=== PATIENT | female | born 1990 | race Caucasian/White ===

== ENCOUNTER 2024-02-17 09:56 | Outpatient (AMB) | payer BC, SELFPAY ==
--- NOTE | 2024-02-17 10:01 | MHC.PC.OV ---
Vital Signs 02/17/24 10:06 02/17/24 10:24 Height 4 ft 11.45 in Weight 159 lb 4 oz BMI 31.7 BP 182/118 H 169/91 H Blood Pressure Location Rt brachial Rt brachial Position Sitting Sitting Pulse 99 Pulse Source Pulse Oximeter Temp 97.3 F Temp Source Temporal Artery Scan Pulse Oximetry (%) 100 Oxygen Delivery Method Room Air Intake Visit Reasons: est care/ bp issue Intake Note: New patient visit. Elevated blood pressure Heel Former Required: No Allergies No Known Allergies Allergy (Verified 02/17/24 10:24) Medication List - Last Reconciled 02/17/24 by ROBBIN Jimenez No Known Home Meds Tobacco use date assessed: 02/17/24 Dental Screening Dental Screen Date: 02/17/24 Did you have a dental visit in the last 12 months?: Yes Did you have a dental problem in the last 6 months where you did not have access to dental care?: No Was dental information given to patient?: Patient has dentist HPI HPI Comments History of Present Illness Details 34-year-old female HTN, currently about 8 weeks. Health maintenance: Specialists: Balloon [facility] - [facility] Here today to establish care. Reports a longstanding history of hypertension. She was 1st treated with medications during her last which was 1 year ago. Reports she was treated with nifedipine and labetalol. She did not have a primary care provider so was unable to continue these medications in the period. She has been off of them for at least 9 months. Since this time she has been monitoring her blood pressure at home. She is complaining of daily headaches. Blurred vision bilat. Taking Tylenol to help with the headache. She is currently 8 weeks . Has not had recent labs drawn. In addition to the hypertension she admits severe anxiety. She has been on a p.r.n. medication in the past. Does not remember what it was called. Admits as use need to take it every day to help control her symptoms. She knows that her anxiety contributes to the hypertension. She is interested in medications. Not interested in counseling. In addition she reports the drooping of her left eyelid. Reports this has been ongoing for about 5 years. Reports that the drooping of the eyelid is worse when she is tired, as the end of the day, when she is stressed, or when she is sick. She has never had evaluation and treatment of this. She reports she had her last eye exam a few years ago when she underwent the LASIK surgery. [facility] Social History (Updated 02/17/24 @ 13:16 by Danitza Childress CMA) Household Members: Significant Other and Children Housing: House Alcohol intake: former Patient Tobacco Use Status: Never used Tobacco e-Cigarette/Vaping Use: Never Used Use of substances other than those prescribed or required for medical reasons: No Have you been hit, kicked, punched, or otherwise hurt by someone within the past year? 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 1. Little interest or pleasure in doing things: not at all 2. Feeling down, depressed, or hopeless: not at all 3. Trouble falling or staying asleep, or sleeping too much: not at all 4. Feeling tired or having little energy: not at all 5. Poor appetite or overeating: not at all 6. Feeling bad about yourself - or that you are a failure or have let yourself or your family down: not at all 7. Trouble concentrating on things, such as reading the newspaper or watching television: not at all 8. Moving or speaking so slowly that other people could have noticed. Or the opposite - being so fidgety or restless that you have been moving around a lot more than usual: not at all 9. Thoughts that you would be better off or of hurting yourself in some way: not at all Total score: 0 Depression Screening Interpretation: Negative Depression Screening Done: Yes 87391 - PHQ-9 Billing: Yes Source: Developed by Drs. Curt Anand, Lacie Mondragon, Devin Quintero and colleagues, with an educational john from [employer]. Thrive Questionnaire Date Thrive assessed: 02/17/24 I am a: Patient What is your living situation today?: I have a steady place to live Within the past 12 months, did the food you bought not last and you didn't have the money to get more?: Never true Within the past 12 months, did you worry whether your food would run out before you got money to buy more?: Never true Do you have trouble paying for medicines?: No Do you have trouble getting transportation to medical appointments?: No Do you have trouble paying your heating and electricity bill?: No Do you have trouble taking care of your child, family member or friend?: No Do you have trouble with day-to-day activities such as bathing, preparing meals, shopping, managing finances, etc.?: No Are you currently unemployed and looking for a job?: No Are you interested in more education?: No Please select the resources that you would like help with: None Currently or been in a relationship where the following occur: no concerns reported THRIVE Score: 0 AUDIT C Alcohol Use Questionnaire (AUDIT-C) 1. How often do you have a drink containing alcohol?: Monthly or less 2. How many drinks containing alcohol do you have on a typical day when you are drinking?: 1 or 2 3. How often do you have six or more drinks on one occasion?: Never Total Score: 1 Score Reviewed/Action Taken: Yes ANDREIA-7 AMB Questionnaire ANDREIA-7 Date ANDREIA - 7 assessed: 02/17/24 Feeling nervous, anxious, or on edge: 2 = More than half the days Not being able to stop or control worryin = More than half the days Worrying too much about different things: 2 = More than half the days Trouble relaxin = More than half the days Being so restless that it is hard to sit still: 1 = Several days Becoming easily annoyed or irritable: 1 = Several days Feeling afraid as if something awful might happen: 1 = Several days Total ANDREIA-7 score (0-4 normal; 5-9 mild; 10-14 moderate; 15-21 severe): 11 Source: Developed by Drs. Curt Anand, Lacie Mondragon, Devin Quintero and colleagues, with an educational john from [employer] ANDREIA-7 Assessment Billing ANDREIA-7 Assessment Tool: ANDREIA-7 Assessment 17043 Review of Systems Const All systems reviewed & are unremarkable except as noted in HPI and below Physical exam (Primary Care) Vital Signs: Last Vital Signs Temp 97.3 F 02/17/24 10:06 Pulse 99 02/17/24 10:06 BP 169/91 H 02/17/24 10:24 Pulse Ox 100 02/17/24 10:06 Oxygen Delivery Method Room Air 02/17/24 10:06 BMI result Body Mass Index 31.7 Tobacco/Smoking Status: Tobacco use Status Tobacco use date assessed 02/17/24 02/17/24 13:19 Patient Tobacco Use Status Never used Tobacco 02/17/24 10:13 e-Cigarette/Vaping Use Never Used 02/17/24 10:13 PHQ-9: PHQ-9 Score PHQ-9: Total score 0 02/17/24 13:19 Depression Screening Interpretation: Negative Thrive Assessment: Date of Thrive Assessment Date Thrive assessed 02/17/24 02/17/24 10:17 Currently or been in a relationship where the following occur: no concerns reported Const Other: awake alert NAD PERRLA L upper lid + ptosis MMM RRR 1/6 systolic murmur LS CTAB + anxiety, cooperative and pleasant Assessment and Plan Assessment & Plan (1) HTN (hypertension): Comment: Blood pressure goal less than 140/90 Plan: Start labetalol 100 mg p.o. b.i.d.. Monitor daily at home. Bring log with you to the next visit. Titrate medications to effect. Echocardiogram ordered Code(s): I10 - Essential (primary) hypertension Qualifiers: Hypertension type: unspecified Qualified Code(s): I10 - Essential (primary) hypertension (2) Ptosis: Comment: Affecting the left upper eyelid. Concerning presentation for myasthenia gravis. We will try to check some labs today and bring back next week to discuss further. May benefit from a neurology referral. advised for her to schedule an eye doctor appointment for an eye exam as soon as possible given the concern of blurred vision Code(s): H02.409 - Unspecified ptosis of unspecified eyelid Qualifiers: Laterality: left Qualified Code(s): H02.402 - Unspecified ptosis of left eyelid (3) ANDREIA (generalized anxiety disorder): Comment: Was on something p.r.n. in the past that she needed to take daily as her symptoms are present daily. She is interested in starting a medication but not interested in counseling. I want to see what her labs look like before starting her on any medications. I will bring her back next week to discuss. Code(s): F41.1 - Generalized anxiety disorder (4) Currently : Comment: Managed by [facility] respiratory physician. I have asked for all of my lab results to be faxed to Dr Rachel Montano Code(s): Z34.90 - Encounter for supervision of normal , unspecified, unspecified trimester Qualifiers: Weeks of gestation: 8 weeks Qualified Code(s): Z3A.08 - 8 weeks gestation of Plan This note is constructed using voice recognition software. While every effort has been made to ensure accuracy in medical transcription editor, still errors may have been included Sometimes, these errors may affect the content or meaning of the given sentence . Total time spent caring for the patient today was 60 minutes. This includes time spent before the visit reviewing the chart, time spent during the visit, and time spent after the visit on documentation Orders: Orders Comprehensive Met. Panel Today I10 - Essential (primary) hypertension Complete Blood Count no Diff Today I10 - Essential (primary) hypertension Acetylcholine Recept. Blocking Today H02.409 - Unspecified ptosis of unspecified eyelid, I10 - Essential (primary) hypertension Acetylcholine Receptor Binding Today H02.409 - Unspecified ptosis of unspecified eyelid, I10 - Essential (primary) hypertension TSH reflex Free T4 Today I10 - Essential (primary) hypertension Microalbumin, Random (w Creat) Today I10 - Essential (primary) hypertension IRON PROFILE Today I10 - Essential (primary) hypertension CA echo transthoracic complete Today I10 - Essential (primary) hypertension MuSK Antibody Today H02.409 - Unspecified ptosis of unspecified eyelid, I10 - Essential (primary) hypertension Acetylcholine Lamp Cleaner Street Light Modulating Today H02.409 - Unspecified ptosis of unspecified eyelid, I10 - Essential (primary) hypertension Medications: New labetalol 100 mg PO BID 60 tabs 0RF Patient Instructions: Return to office in 1 week for follow up of your blood pressure, labs, anxiety Coding Level of Care Code New Pt Level 5 (57855) Diagnoses Hypertension, unspecified type I10 Hypertension type: unspecified Ptosis of left eyelid H02.402 Laterality: left ANDREIA (generalized anxiety disorder) F41.1 8 weeks gestation of Z3A.08 Weeks of gestation: 8 weeks Additional Codes ANDREIA-7 Assessment Billing - ANDREIA-7 Assessment Tool: ANDREIA-7 Assessment [id number] ([id number])
[2024-02-17 10:06] VITALS: BP 182/118; PULSE 99; TEMP 36.3; O2SAT 100; BMI 31.7
[2024-02-17 10:24] VITALS: BP 169/91
== END 2024-02-17 11:06 | disposition home or self-care (01) ==
PROVIDERS: PCP Nurse Practitioner Family; Visit Provider Nurse Practitioner Family
DX: I10 Essential (primary) hypertension (principal); H02.402 Unspecified ptosis of left eyelid; F41.1 Generalized anxiety disorder; Z3A.08 8 weeks gestation of pregnancy
CPT/HCPCS: 99205

== ENCOUNTER 2024-02-17 10:42 | Outpatient (REF) | payer BC, SELFPAY ==
[2024-02-17 14:42] LABS: Hematocrit 38.4 % (37.0-47.0); Hemoglobin 12.9 g/dl (12.0-16.0); Mean Corpuscular HGB Conc 33.6 g/dl (31.0-35.0); Mean Corpuscular Hemoglobin 31.4 pg (27.0-33.0); Mean Corpuscular Volume 93.4 fL (80.0-98.0); Mean Platelet Volume 9.8 fL (9.4-12.3); Platelet Count 382 X10*3/uL (160-400); Red Blood Count 4.11 X10*6/uL (4.20-5.50); Red Cell Distribution Width 12.2 % (11.0-16.0); White Blood Count 8.6 X10*3/uL (4.8-10.8)
[2024-02-17 15:17] LABS: Creatinine Urine 130.39 mg/dL; Microalbum/Creatinine Ratio Ur 19.9 ug/mg cr (<30)
[2024-02-17 15:18] LABS: Alanine Aminotransferase 15 U/L (0-31); Albumin Level 4.5 g/dL (3.5-5.0); Alkaline Phosphatase 58 U/L (39-117); Anion Gap 14 (12-20); Aspartate Amino Transferase 16 U/L (5-31); Bilirubin Total 0.5 mg/dL (0.0-1.0); Blood Urea Nitrogen 12 mg/dL (9-16); Calcium 10.1 mg/dL (8.4-10.2); Carbon Dioxide 24 mmol/L (22-29); Chloride 104 mmol/L (96-108); Estimated Glomerular Filt Rate > 60; Glucose Random 83 mg/dL (60-115); Iron 155 mcg/dL (30-160); Percent Iron Saturation 48 % (15-50); Potassium 4.4 mmol/L (3.3-5.1); Sodium 138 mmol/L (135-145); Total Iron Binding Capacity 321 mcg/dL (228-428); Total Protein 7.5 g/dL (6.5-8.0); Unsaturated Iron Binding 166 ug/dL
[2024-02-17 15:38] LABS: TSH reflex Free T4 1.36 uIU/mL (0.32-4.0)
== END 2024-02-17 10:43 | disposition home or self-care (01) ==
LOC: HO.WFDLDS 10:42
PROVIDERS: Visit Provider Nurse Practitioner Family
DX: I10 Essential (primary) hypertension (principal)
CPT/HCPCS: 36415; 80053; 82043; 82570; 83540; 84443; 85027

== ENCOUNTER → 2024-02-27 11:06 | Outpatient (REF) | payer BC, SELFPAY ==
--- NOTE | 2024-02-27 11:09 | CA_ITS ---
Transthoracic Echocardiogram Patient (Last, First, Middle): Jill Wallace, Gender: Female Date of : 1990 Age: 34 Procedure Date: 02/27/2024 Procedure Type: Transthoracic Echocardiogram Location: OP Height: 152.4 cm Weight: 72.58 kg BSA: 1.70 m2 Heart Rate: bpm BP: 120 / 85 mmHg Lace Weaver: ROXANNA Referring MD: Maureen Bobby [facility]- [facility] And Former Automatic: Edgard Stephens MD Symptoms: I10 - Essential (primary) hypertension Study Quality: Adequate ECG Rhythm: Sinus Conclusions: - Essentially normal study Findings Left Ventricle Normal left ventricular size, thickness, and systolic function. The visually estimated ejection fraction is between 60-65%. Diastolic function is normal for age. Peak GLS is -19.6%, within normal limits. Right Ventricle Normal right ventricular cavity size and systolic function. Atria Both atria are normal in size. Interatrial shunt cannot be excluded. Aortic Valve Normal aortic valve structure and function. There is no aortic valve stenosis. There is no aortic valve regurgitation. Mitral Valve Normal mitral valve structure and function. There is trace mitral valve regurgitation. There is no mitral valve stenosis. Pulmonic Valve The pulmonic valve is likely normal. There is trace pulmonic valve regurgitation. Tricuspid Valve Normal tricuspid valve structure. Tricuspid regurgitation envelope is inadequate for calculation of right ventricular systolic pressure. Normal right atrial pressure. Great Vessels All visible segments of the aorta are normal in size. The pulmonary artery was not well visualized. Venous The inferior vena cava is normal in size and collapses greater than 50% with inspiration. Pericardium/Pleural There is no evidence of pericardial effusion. Prior Study Comparison No prior study available for comparison. Recommendations, Care & Conclusions Recommend contrast study to evaluate intracardiac shunting. Measurements 2D Linear Measurements IVSd: 0.83 0.6-0.9/0.6-1.0 cm LVIDd: 5.09 3.9-5.3/4.2-5.9 cm LVIDd Index: 2.99 2.4-3.2/2.2-3.1 cm/m2 LVIDs: 3.08 2.0-3.6 cm LVPWd: 1.04 0.7-1.1 cm LA Diam: 3.90 2.7-3.8/3.0-4.0 cm LAIDs Index: 2.29 1.5-2.3 cm/m2 LV Mass: 213.64 67-162/88-224 g LV Mass Index: 125.67 43-95/49-115 g/m2 LVOT Diam: 2.00 3.0+(-)1.3 cm 2D Systolic Function EF 4C: 63.60 >55% EF 2C: 65.00 >55% EF BiP: 64.60 >55% Mitral Valve MV Pk E: 0.82 MV PK A: 0.51 MV Decel Time: 216.00 E/A: 1.60 E'Lateral: 10.60 E'Medial: 7.62 E/E' Med: 10.80 E/E' Lat: 7.80 PHT: 63.00 MVA PHT: 3.49 Decel [place]: 3.81 Aortic Valve AoV Pk Nicolás: 1.27 AoV Mn Nicolás: 0.90 AoV VTI: 0.27 AoV Pk Grad: 6.00 Aov Mn Grad: 4.00 XAVIER Cont.VTI: 2.46 LVOT LVOT Pk Nicolás: 1.04 LVOT Mn Nicolás: 0.71 LVOT VTI: 0.21 LVOT Pk Grad: 4.00 LVOT Mn Grad: 2.00 LVOT Diam: 2.00 LVOT Area: 3.14 Diastolic Function MV Pk E: 0.82 MV Pk A: 0.51 E/A: 1.60 E'Medial: 7.62 E/E' Med: 10.80 E' Laterial: 10.60 E/E' Lat: 7.80 Right Ventricle TAPSE (mm): 29.50 TVS' Nicolás: 16.20 Tricuspid Valve RA Press: 3.00 Great Vessels Aorta Sinus of Valsalva: 3.20 2.0-3.[address] [place]: 2.74 1.7-3.4 cm Ao Asc: 3.20 2.1-3.4 cm Ao Arch: 2.80 Updated in Other Vendor System with Status of Final Edgard Stephens MD electronically signed on 02/27/2024 4:01:53 PM with status of Final
== END ==
LOC: HO.CARD 11:06
PROVIDERS: PCP Nurse Practitioner Family; Visit Provider Nurse Practitioner Family
DX: I10 Essential (primary) hypertension (principal)
CPT/HCPCS: 93306; 93356

== ENCOUNTER → 2024-02-27 11:09 | Outpatient (BNV) | payer BC, SELFPAY | PROVIDERS: PCP Nurse Practitioner Family; Visit Provider Internal Medicine Cardiovascular Disease | DX: I36.8 Other nonrheumatic tricuspid valve disorders (principal); I10 Essential (primary) hypertension | CPT/HCPCS: 93306; 93356 ==

== ENCOUNTER 2024-03-05 11:24 | Outpatient (AMB) | payer BC, SELFPAY ==
[2024-03-05 11:33] VITALS: BP 120/70; PULSE 81; TEMP 36.5; O2SAT 100; BMI 31.8
--- NOTE | 2024-03-05 11:33 | MHC.PC.OV ---
Vital Signs 03/05/24 11:33 Height 4 ft 11.45 in Weight 160 lb BMI 31.8 BP 120/70 Blood Pressure Location Rt brachial Position Sitting Pulse 81 Pulse Source Pulse Oximeter Temp 97.7 F Temp Source Temporal Artery Scan Pulse Oximetry (%) 100 Oxygen Delivery Method Room Air Intake Visit Reasons: HTN FU Intake Note: Patient is here for a follow up for hypertension. Patient reports she may need something else for anxiety as she reports she has not noticed a difference with the blood presure medication. Dobie Worker Required: No Accompanied by: Self / Same As Patient Allergies No Known Allergies Allergy (Verified 03/05/24 12:05) Medication List - Last Reconciled 03/05/24 by Maureen Bobby, AMNA-BC aspirin (Adult Low Dose Aspirin) 162 mg PO DAILY labetalol 100 mg PO BID Tobacco use date assessed: 02/17/24 Dental Screening Dental Screen Date: 02/17/24 HPI HPI Comments History of Present Illness Details 34-year-old female HTN, currently about 17 weeks. Health maintenance: Specialists: Operations/Dispatch - [facility] Here today to fu on labs, HTN, Anxiety and L eye complaints. Home BP log SBP 118-125 DBP 82-88 P 72-78, tolerating Labetolol Did not help ANDREIA. Blurred vision is better; did not schedule eye exam yet. Much less headaches. Did have appt with [facility] - US done and reports WNL. Labs from 02/17/2024 showing normal CBC, normal CMP, normal iron, normal TSH normal urine microalbumin creatinine ratio Echo 02/2024 Normal left ventricular size, thickness, and systolic function. The visually estimated ejection fraction is between 60-65%. Diastolic function is normal for age. Peak GLS is -19.6%, within normal limits. 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 Curt Anand, Lacie Mondragon, Devin Quintero and colleagues, with an educational john from [employer]. Review of Systems Const All systems reviewed & are unremarkable except as noted in HPI and below Physical exam (Primary Care) Vital Signs: Last Vital Signs Temp 97.7 F 03/05/24 11:33 Pulse 81 03/05/24 11:33 BP 120/70 03/05/24 11:33 Pulse Ox 100 03/05/24 11:33 Oxygen Delivery Method Room Air 03/05/24 11:33 BMI result Body Mass Index 31.8 Tobacco/Smoking Status: Tobacco use Status Tobacco use date assessed 02/17/24 03/05/24 11:40 Patient Tobacco Use Status Never used Tobacco 03/05/24 11:40 e-Cigarette/Vaping Use Never Used 03/05/24 11:40 Thrive Assessment: Date of Thrive Assessment Date Thrive assessed 02/17/24 03/05/24 11:40 Const Other: awake alert NAD PERRLA L upper lid + ptosis MMM RRR 1/6 systolic murmur LS CTAB + anxiety, cooperative and pleasant Assessment and Plan Assessment & Plan (1) ANDREIA (generalized anxiety disorder): Comment: Start celexa 10 mg po QD. Code(s): F41.1 - Generalized anxiety disorder (2) Ptosis: Comment: Affecting the left upper eyelid. Concerning presentation for myasthenia gravis. We will try to check some labs today and bring back next week to discuss further. May benefit from a neurology referral. advised for her to schedule an eye doctor appointment for an eye exam. MG labs to be done at the next lab appt (at [facility] in a few weeks) Code(s): H02.409 - Unspecified ptosis of unspecified eyelid Qualifiers: Laterality: left Qualified Code(s): H02.402 - Unspecified ptosis of left eyelid (3) HTN (hypertension): Comment: Blood pressure goal less than 140/90 Plan: Cont labetalol 100 mg p.o. b.i.d.. Monitor daily at home. Bring log with you to the next visit. Code(s): I10 - Essential (primary) hypertension Qualifiers: Hypertension type: unspecified Qualified Code(s): I10 - Essential (primary) hypertension (4) Systolic murmur: Comment: Echo 02/2024 Normal left ventricular size, thickness, and systolic function. The visually estimated ejection fraction is between 60-65%. Diastolic function is normal for age. Peak GLS is -19.6%, within normal limits. Trace mitral and pulmonic valve regurgitation Recommendation contrast study to evaluate intracardiac shunting She does not wish to do a bubble study at this time; I do not think there is any reason to do this at this time. She is already taking a BB and ASA QD If she develops any sx or when she is not could entertain. Code(s): R01.1 - Cardiac murmur, unspecified Plan 45 minutes was spent caring for this patient, this includes chart review, face to face and charting Medications: New citalopram 10 mg PO DAILY 30 tabs 1RF Patient Instructions: RTO IN 6 WEEKS TO F/U ON CELEXA START AND BP; SOONER PRN Coding Level of Care Code Est Pt Level 5 (96482) Diagnoses ANDREIA (generalized anxiety disorder) F41.1 Ptosis of left eyelid H02.402 Laterality: left Hypertension, unspecified type I10 Hypertension type: unspecified Systolic murmur R01.1
== END 2024-03-05 12:34 | disposition home or self-care (01) ==
PROVIDERS: PCP Nurse Practitioner Family; Visit Provider Nurse Practitioner Family
DX: F41.1 Generalized anxiety disorder (principal); H02.402 Unspecified ptosis of left eyelid; I10 Essential (primary) hypertension; R01.1 Cardiac murmur, unspecified
CPT/HCPCS: 99215

== ENCOUNTER 2025-02-26 13:02 | Outpatient (AMB) | payer BC, SELFPAY ==
--- NOTE | 2025-02-26 13:05 | MHC.PC.OV ---
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: No Allergies No Known Allergies Allergy (Verified 02/26/25 15:29) Medication List - Last Reconciled 02/26/25 by AMNA Jimenez- aspirin (Adult Low Dose Aspirin) 162 mg PO DAILY citalopram 10 mg PO DAILY labetalol 100 mg PO BID Tobacco use date assessed: 02/26/25 Dental Screening Dental Screen Date: 02/26/25 Did you have a dental visit in the last 12 months?: Yes Did you have a dental problem in the last 6 months where you did not have access to dental care?: No Was dental information given to patient?: Patient has dentist HPI HPI Comments History of Present Illness Details 35-year-old female w/ HTN & ANDREIA Telehealth visit: ANDREIA: - Reports that Celexa (10 mg nightly) is inadequately managing her depression and anxiety, with increasing anxiety and tension related to managing two young children. - Currently on 10 mg of Celexa but is agreeable to an increased dose for enhanced symptom control. Denies SI/HI HTN: She is managing Essential Hypertension with labetalol without significant issues in her blood pressure levels. - Reports chronic L eye ptosis with a ten-year progression, no noted changes. Did not get eye exam or labs; delayed due to logistical issues post-, causing difficulty in completing necessary testing. Results: Labs from 02/17/2024 showing normal CBC, normal CMP, normal iron, normal TSH normal urine microalbumin creatinine ratio Echo 02/2024 Normal left ventricular size, thickness, and systolic function. The visually estimated ejection fraction is between 60-65%. Diastolic function is normal for age. Peak GLS is -19.6%, within normal limits. Trace mitral and pulmonic valve regurgitation Recommendation contrast study to evaluate intracardiac shunting Ordered but not completed: Plan Increase Celexa from 10 mg to 20 mg daily. Continue labetalol 100 mg twice per day Complete lab work. New lab orders placed today. Advised to go to the [facility] and [place] to have this done. Schedule a complete eye exam. Return to the office in 6 weeks via telehealth to follow up on anxiety and lab results, sooner as needed. This encounter was conducted via telehealth, and the documentation accurately reflects the consultation as per patient report. The patient has been explained that this is an interactive (audio/video) telehealth encounter and what that consists of. The patient understands and wishes to proceed. Digital Guardian platform was used. Total time spent caring for the patient today was 15 minutes. This includes time spent before the visit reviewing the chart, time spent during the visit, and time spent after the visit on documentation, reviewing laboratory results, diagnostic imaging, medications, performing a medically necessary evaluation, counseling on diagnoses, care coordination, ordering appropriate tests, ordering appropriate medications, review of tests performed by other providers, reporting test results with the patient, communication with other healthcare providers. 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 How many drinks containing alcohol do you have on a typical day when you are drinking?: 1 or 2 3. How often do you have six or more drinks on one occasion?: Never Total Score: 0 ANDREIA-7 AMB Questionnaire ANDREIA-7 Date ANDREIA - 7 assessed: 02/17/24 Source: Developed by Drs. Curt Anand, Lacie Mondragon, Devin Quintero and colleagues, with an educational john from [employer]. Physical exam (Primary Care) Tobacco/Smoking Status: Tobacco use Status Tobacco use date assessed 02/26/25 02/26/25 13:08 Patient Tobacco Use Status Never used Tobacco 02/26/25 13:08 e-Cigarette/Vaping Use Never Used 02/26/25 13:08 Thrive Assessment: Date of Thrive Assessment Date Thrive assessed 02/17/24 02/26/25 13:08 Telehealth Telehealth Telehealth Platform: Digital Guardian Location of provider rendering services: practice address Location of patient: address on file Patient Identification confirmed using: Name, : Yes Telehealth method: voice only Patient verbally consented to treatment: Yes Patient verbally consented to billing insurance company: Yes Patient informed of any privacy concerns related to visit: Yes Minutes spent on Phone/Video with Pt.: 9 Coding Level of Care Code Tele Est Pt Level 3 (40694) Complex EM visit Add On G2211 Diagnoses ANDREIA (generalized anxiety disorder) F41.1 Hypertension, unspecified type I10 Hypertension type: unspecified Ptosis of left eyelid H02.402 Laterality: left Assessment & Plan Assessment & Plan (1) ANDREIA (generalized anxiety disorder): Code(s): F41.1 - Generalized anxiety disorder Category: Medical (2) HTN (hypertension): Comment: Blood pressure goal less than 140/90 Plan: Cont labetalol 100 mg p.o. b.i.d.. Monitor daily at home. Bring log with you to the next visit. Code(s): I10 - Essential (primary) hypertension Category: Medical Qualifiers: Hypertension type: unspecified Qualified Code(s): I10 - Essential (primary) hypertension (3) Ptosis: Comment: Affecting the left upper eyelid. Concerning presentation for myasthenia gravis. We will try to check some labs today and bring back next week to discuss further. May benefit from a neurology referral. advised for her to schedule an eye doctor appointment for an eye exam. MG labs to be done Code(s): H02.409 - Unspecified ptosis of unspecified eyelid Category: Medical Qualifiers: Laterality: left Qualified Code(s): H02.402 - Unspecified ptosis of left eyelid Plan . Orders: Orders Comprehensive Met. Panel Today F41.1 - Generalized anxiety disorder, H02.402 - Unspecified ptosis of left eyelid, I10 - Essential (primary) hypertension TSH reflex Free T4 Today F41.1 - Generalized anxiety disorder, H02.402 - Unspecified ptosis of left eyelid, I10 - Essential (primary) hypertension Acetylcholine Recept. Blocking Today F41.1 - Generalized anxiety disorder, H02.402 - Unspecified ptosis of left eyelid, I10 - Essential (primary) hypertension Acetylcholine Receptor Binding Today F41.1 - Generalized anxiety disorder, H02.402 - Unspecified ptosis of left eyelid, I10 - Essential (primary) hypertension Acetylcholine Natural Resources Extension Educator Modulating Today F41.1 - Generalized anxiety disorder, H02.402 - Unspecified ptosis of left eyelid, I10 - Essential (primary) hypertension Complete Blood Count no Diff Today F41.1 - Generalized anxiety disorder, H02.402 - Unspecified ptosis of left eyelid, I10 - Essential (primary) hypertension MuSK Antibody Today F41.1 - Generalized anxiety disorder, H02.402 - Unspecified ptosis of left eyelid, I10 - Essential (primary) hypertension Ferritin Today F41.1 - Generalized anxiety disorder, H02.402 - Unspecified ptosis of left eyelid, I10 - Essential (primary) hypertension Medications: New citalopram 20 mg PO DAILY 30 tabs 1RF Discontinued citalopram Discontinued Reason: Patient Completed Course 10 mg PO DAILY 90 tabs 1RF
== END 2025-02-26 16:32 | disposition home or self-care (01) ==
LOC: HO.HMCFM 13:02
PROVIDERS: PCP Nurse Practitioner Family; Visit Provider Nurse Practitioner Family
DX: I10 Essential (primary) hypertension (principal); F41.1 Generalized anxiety disorder; H02.402 Unspecified ptosis of left eyelid

== ENCOUNTER 2025-03-24 14:34 | Outpatient (AMB) | payer BC, SELFPAY ==
--- NOTE | 2025-03-24 16:48 | A.OFFPC_ITS ---
Intake Visit Reasons: Medication Allergies No Known Allergies Allergy (Verified 03/24/25 16:50) Medication List - Last Reconciled 03/24/25 by AMNA Jimenez- aspirin (Adult Low Dose Aspirin) 162 mg PO DAILY citalopram 20 mg PO DAILY labetalol 100 mg PO BID Tobacco use date assessed: 02/26/25 Dental Screening Dental Screen Date: 02/26/25 HPI HPI Comments 2 History of Present Illness0 Details 35-year-old female w/ HTN & ANDREIA Telehealth visit: FU Anxiety management and hypertension. - Generalized Anxiety Disorder: The chino ent reports improvement in anxiety symptoms following an increase in her citalopram dosage 20mg. She noticed the effects took several weeks to become apparent, with symptoms now significantly reduced except for some residual shoulder tension. Denies SI/HI - Hypertension: The patient is on labeta lol and finds her hypertension is currently well-managed. She has not noted any recent changes in her symptoms. Has CPE scheduled Jun 2025. L eye ptosis remains unchanged. Ordered but not completed: Assessment and Plan 1. Generalized Anxiety Disorder The patient's anxiety is well-managed with the current citalopram dosage,20mg, with symptoms significantly reduced and only some residual shoulder tension. A 90-day supply plus a refill has been prescribed to ensure consistency in management. Ongoing monitoring for symptom progression will guide any future dosage adjustments. 2. Hypertension Hypertension is effectively managed with labetalol, as per the patient's report. The patient's blood pressure is stable, and continued monitoring will be necessary, with scheduled follow-ups to validate treatment efficacy and make adjustments as needed. She will get labs done before her CPE in Jun 2025. Telehealth Attestation This visit was conducted via a telehealth platform, and the documentation accurately reflects the details discussed during the visit. The patient has been explained that this is an interactive (audio/video) telehealth encounter and what that consists of. The patient understands and wishes to proceed. [employer] platform was used. Total time spent caring for the patient today was 11 minutes. This includes time spent before the visit reviewing the chart, time spent during the visit, and time spent after the visit on documentation, reviewing laboratory results, diagnostic imaging, medications, performing a medically necessary evaluation, counseling on diagnoses, care coordination, ordering appropriate tests, ordering appropriate medications, review of tests performed by other providers, reporting test results with the patient, communication with other healthcare providers. 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 Curt Anand, Lacie Mondragon, Devin Quintero and colleagues, with an educational john from [employer]. Physical exam (Primary Care) Tobacco/Smoking Status: Tobacco use Status Tobacco use date assessed 02/26/25 03/24/25 16:48 Patient Tobacco Use Status Never used Tobacco 03/24/25 16:48 e-Cigarette/Vaping Use Never Used 03/24/25 16:48 Thrive Assessment: Date of Thrive Assessment Date Thrive assessed 02/17/24 03/24/25 16:48 Telehealth Telehealth Telehealth Platform: [facility] Location of provider rendering services: practice address Location of patient: address on file Patient Identification confirmed using: Name, : Yes Telehealth method: voice only Patient verbally consented to treatment: Yes Patient verbally consented to billing insurance company: Yes Patient informed of any privacy concerns related to visit: Yes Minutes spent on Phone/Video with Pt.: 4 Coding Level of Care Code Tele Est Pt Level 2 (53104) Complex EM visit Add On G2211 Diagnoses ANDREIA (generalized anxiety disorder) F41.1 Hypertension, unspecified type I10 Hypertension type: unspecified Ptosis of left eyelid H02.402 Laterality: left Assessment & Plan Assessment & Plan (1) ANDREIA (generalized anxiety disorder): Code(s): F41.1 - Generalized anxiety disorder Category: Medical (2) HTN (hypertension): Comment: Blood pressure goal less than 140/90 Plan: Cont labetalol 100 mg p.o. b.i.d.. Monitor daily at home. Bring log with you to the next visit. Code(s): I10 - Essential (primary) hypertension Category: Medical Qualifiers: Hypertension type: unspecified Qualified Code(s): I10 - Essential (primary) hypertension (3) Ptosis: Comment: Affecting the left upper eyelid. Concerning presentation for myasthenia gravis. We will try to check some labs today and bring back next week to discuss further. May benefit from a neurology referral. advised for her to schedule an eye doctor appointment for an eye exam. MG labs to be done Code(s): H02.409 - Unspecified ptosis of unspecified eyelid Category: Medical Qualifiers: Laterality: left Qualified Code(s): H02.402 - Unspecified ptosis of left eyelid Plan . Medications: Refilled 2 citalopram 20 mg PO DAILY 90 tabs 1RF
== END 2025-03-24 17:05 | disposition home or self-care (01) ==
LOC: HO.HMCFM 14:34
PROVIDERS: PCP Nurse Practitioner Family; Visit Provider Nurse Practitioner Family
DX: I10 Essential (primary) hypertension (principal); F41.1 Generalized anxiety disorder; H02.402 Unspecified ptosis of left eyelid

== ENCOUNTER → 2025-03-24 14:34 | Outpatient (BNVA) | payer BC, SELFPAY | PROVIDERS: PCP Nurse Practitioner Family; Visit Provider Nurse Practitioner Family | DX: I10 Essential (primary) hypertension (principal); F41.1 Generalized anxiety disorder; H02.402 Unspecified ptosis of left eyelid; Z79.899 Other long term (current) drug therapy | CPT/HCPCS: 98967 ==

== ENCOUNTER 2025-06-10 12:39 | Outpatient (REF) | payer BC, SELFPAY ==
[2025-06-10 14:00] LABS: Hematocrit 37.7 % (37.0-47.0); Hemoglobin 12.9 g/dl (12.0-16.0); Mean Corpuscular HGB Conc 34.2 g/dl (31.0-35.0); Mean Corpuscular Hemoglobin 32.1 pg (27.0-33.0); Mean Corpuscular Volume 93.8 fL (80.0-98.0); NRBC Abs Auto 0.000 X10*3/uL (0.0-0.012); NRBC Pct Auto 0.0 /100WBC (0.0-0.2); Platelet Count 308 X10*3/uL (160-400); Red Blood Count 4.02 X10*6/uL (4.20-5.50); White Blood Count 8.2 X10*3/uL (4.8-10.8)
[2025-06-10 14:35] LABS: Alanine Aminotransferase 58 U/L (0-31); Albumin Level 4.7 g/dL (3.5-5.0); Alkaline Phosphatase 69 U/L (39-117); Anion Gap 12 (12-20); Aspartate Amino Transferase 39 U/L (5-31); Blood Urea Nitrogen 16 mg/dL (9-16); Calcium 9.4 mg/dL (8.4-10.2); Carbon Dioxide 26 mmol/L (22-29); Chloride 105 mmol/L (96-108); Estimated Glomerular Filt Rate > 60; Potassium 4.1 mmol/L (3.3-5.1); Sodium 139 mmol/L (135-145); Total Protein 7.1 g/dL (6.5-8.0)
[2025-06-10 14:53] LABS: Ferritin 106 ng/mL (10-122)
[2025-06-17 19:18] LABS: Acetylcholine Recept. Blocking <15 (<15)
== END 2025-06-10 12:40 | disposition home or self-care (01) ==
LOC: HO.LAB 12:39
PROVIDERS: PCP Nurse Practitioner Family; Visit Provider Nurse Practitioner Family
DX: I10 Essential (primary) hypertension (principal); F41.1 Generalized anxiety disorder; H02.402 Unspecified ptosis of left eyelid
CPT/HCPCS: 36415; 80053; 82728; 84443; 85027; 86041; 86042; 86043; 86366

== ENCOUNTER 2025-08-20 15:06 | Outpatient (AMB) | payer BC, SELFPAY ==
--- NOTE | 2025-08-20 15:08 | A.OFFPC_ITS ---
Vital Signs 08/20/25 15:11 Height 4 ft 11 in Weight 167 lb 2 oz BMI 33.8 BP 152/80 H Blood Pressure Location Lt brachial Position Sitting Respiration 13 Pulse 76 Pulse Source Pulse Oximeter Temp 97.2 F Temp Source Oral Pulse Oximetry (%) 99 Oxygen Delivery Method Room Air Intake Visit Reasons: cpe Intake Note: CPE. Patient c/o of a cyst on her back. 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 Required: No Allergies No Known Allergies Allergy (Verified 08/20/25 15:09) Medication List - Last Reconciled 08/20/25 by Maureen Bobby, DATA CAPTURE CLERK- citalopram 20 mg PO DAILY labetalol 100 mg PO BID norethindrone (contraceptive) 0.35 mg PO DAILY Tobacco use date assessed: 08/20/25 Dental Screening Dental Screen Date: 08/20/25 Did you have a dental visit in the last 12 months?: Yes Did you have a dental problem in the last 6 months where you did not have access to dental care?: No Was dental information given to patient?: Patient has dentist HPI HPI Comments History of Present Illness Details 35-year-old female HTN, ANDREIA Social: 1 and 2 year at home Surgery: none Fhx: No changes Health maintenance: Tdap 2023 Pap UTD Flu declined Specialists: [facility]itter - [facility] Pap UTD Optho 09/2025 Here today for CPE ANDREIA - stable on current meds HTN uncontrolled, headaches, pain in the back of neck on L side shoots up the head. Vision is the same. Made eye doc appt. L Ptosis cont. Worse when tired. Cyst on back for 5 years, bigger and bothersome. Results: Labs 05/2025 reviewed Echo 02/2024 Normal left ventricular size, thickness, and systolic function. The visually estimated ejection fraction is between 60-65%. Diastolic function is normal for age. Peak GLS is -19.6%, within normal limits. Trace mitral and pulmonic valve regurgitation Recommendation contrast study to evaluate intracardiac shunting Review of Systems - Neurological: Reports headaches, denie s visual disturbances. - Musculoskeletal: Reports neck pain. - Ophthalmic: Reports ptosis. - Skin: Denies rashes, reports cyst. - Cardiorespiratory: Denies chest pain, shortness of breath. - Gastrointestinal: Denies changes in hai wel movements. - Genitourinary: Reports menstruation ir regularities. Physical Exam General: Well developed, well nourished, in no acute distress. Appears stated age. Head: Normocephalic, atraumatic. Reports headaches and tension on the left side of the neck that shoots up to the head. Eyes: Pupils are equal, round and reactive to light and accommodation. Conjunctivae are clear. Scleras nonicteric bilat. Vision grossly normal. L upper lid ptosis. Ears: TMs clear AU, EACS WNL Nose: Patent, without discharge. Neck: No carotid bruit bilat. Supple, no adenopathy or thyromegaly. Reports tension and pain on the left side. Breast: Edu on SBE Lungs: Clear to auscultation bilaterally. No rales, rhonchi or wheeze noted. Good air flow in all pagan. Heart: Regular rate and rhythm. No murmurs, click, rubs or gallops are noted. Abdomen: Bowel sounds present in all quadrants. The abdomen is soft, nontender, with no masses or organomegaly noted. No hernias are noted. : Deferred. Reviewed ASHU & recommendations for routine SPIRITS MODEL. Pap smears are up-to-date. Pulses: Peripheral pulses are equal and palpable bilaterally. Extremities: No clubbing, cyanosis nor edema is noted. Reports a cyst on the back, not painful but getting bigger. Neurologic: Gait and station normal. Cranial Nerves 2-12 intact. Motor strength grossly symmetrical and intact. No sensory loss. Balance normal. Referred to neurology for evaluation of symptoms. Skin: No rashes, ulcers, or lesions noted. Turgor is good. Skin color is good. Hair and nails are without abnormalities. cyst L upper back Psych: Normal eye contact, affect and mood appropriate, and normal interactions. Patient is alert and appropriate to context. Reports anxiety, managed with citalopram. Discussion Notes I discussed with the patient her ongoing health concerns including hypertension and cervicalgia and investigated the possibility of medication changes to better manage her blood pressure. We reviewed her anxiety management, which she reports is stable under current medication. I recommended transitioning from labetalol to lisinopril, detailing potential side effects including the risk of cough and angioedema. We discussed the ptosis and options for consulting a neurologist for further evaluation. Continuing ophthalmology follow-up is recommended. Surgical referral for cyst excision was discussed, considering her symptoms and preference. I advised follow-up consultations and additional tests if symptoms persist or worsen. Patient was given time to ask questions. All questions were answered to their satisfaction. Assessment and Plan 1. Essential Hypertension - Initiate lisinopril 5 mg, cont labetol ol ; monitor BP and side effects. 2. Generalized Anxiety Disorder - Maintain current citalopram regimen. 3. Cervicalgia/Headaches/Ptosis - Neuro and optho eval 4. Benign Cyst - Surgical referral for excision. Patient Instructions - Take lisinopril as directed; monitor f or cough or swelling. - Continue taking citalopram daily. - See a neurologist for eye and neck sym ptoms. - Follow up with surgery about cyst wendy sina. - Watch for blood pressure readings at h ome. - RTO 4 weeks w/ repeat labs for BP rech iesha Consent Patient was informed and verbally consented to the use of an ambient scribe for clinic note documentation during this visit. An additional 20 minutes was spent addressing the problem(s) noted at todays visit. This includes time spent before the visit reviewing the chart, time spent during the visit, and time spent after the visit on documentation reviewing laboratory results, diagnostic imaging, medications, performing a medically necessary evaluation, counseling on diagnoses, care coordination, ordering appropriate tests, ordering appropriate medications, review of tests performed by other providers, reporting test results with the patient, communication with other healthcare providers. [facility], [facility] Medical History ANDREIA (generalized anxiety disorder) Surgical History No pertinent past surgical history Social History Household Members: Significant Other and Children Housing: House Alcohol intake: former Patient Tobacco Use Status: Never used Tobacco e-Cigarette/Vaping Use: Never Used Second Hand Smoke Exposure: No service: No Current occupational status: employed Current occupation: [employer] Cognitive needs: No Hearing needs: No Vision needs: Yes Questionnaire PHQ-9 Over the last 2 weeks, how often have you been bothered by any of the following problems? 1. Little interest or pleasure in doing things: not at all 2. Feeling down, depressed, or hopeless: not at all 3. Trouble falling or staying asleep, or sleeping too much: not at all 4. Feeling tired or having little energy: several days 5. Poor appetite or overeating: not at all 6. Feeling bad about yourself - or that you are a failure or have let yourself or your family down: not at all 7. Trouble concentrating on things, such as reading the newspaper or watching television: not at all 8. Moving or speaking so slowly that other people could have noticed. Or the opposite - being so fidgety or restless that you have been moving around a lot more than usual: not at all 9. Thoughts that you would be better off or of hurting yourself in some way: not at all Total score: 1 Depression Screening Interpretation: Negative Depression Screening Done: Yes [id number] - PHQ-9 Billing: Yes Source: Developed by Drs. Curt Anand, Lacie Mondragon, Devin Quintero and colleagues, with an educational john from [employer]. Thrive Questionnaire Date Thrive assessed: 08/20/25 I am a: Patient What is your living situation today?: I have a steady place to live Within the past 12 months, did the food you bought not last and you didn't have the money to get more?: Never true Within the past 12 months, did you worry whether your food would run out before you got money to buy more?: Never true Do you have trouble paying for medicines?: No Do you have trouble getting transportation to medical appointments?: No Do you have trouble paying your heating and electricity bill?: No Do you have trouble taking care of your child, family member or friend?: No Do you have trouble with day-to-day activities such as bathing, preparing meals, shopping, managing finances, etc.?: No Are you currently unemployed and looking for a job?: No Are you interested in more education?: No Please select the resources that you would like help with: None Currently or been in a relationship where the following occur: No concerns reported THRIVE Score: 0 AUDIT C Alcohol Use Questionnaire (AUDIT-C) 1. How often do you have a drink containing alcohol?: Never 3. How often do you have six or more drinks on one occasion?: Never Total Score: 0 Score Reviewed/Action Taken: Yes ANDREIA-7 AMB Questionnaire ANDREIA-7 Date ANDREIA - 7 assessed: 08/20/25 Feeling nervous, anxious, or on edge: 0 = Not at all Not being able to stop or control worryin = Not at all Worrying too much about different things: 0 = Not at all Trouble relaxin = Not at all Being so restless that it is hard to sit still: 0 = Not at all Becoming easily annoyed or irritable: 0 = Not at all Feeling afraid as if something awful might happen: 0 = Not at all Total ANDREIA-7 score (0-4 normal; 5-9 mild; 10-14 moderate; 15-21 severe): 0 Source: Developed by Drs. Curt Anand, Lacie Mondragon, Devin Quintero and colleagues, with an educational john from [employer]. ANDREIA-7 Assessment Billing ANDREIA-7 Assessment Tool: ANDREIA-7 Assessment 55210 Physical exam (Primary Care) Vital Signs: Last Vital Signs Temp 97.2 F 08/20/25 15:11 Pulse 76 08/20/25 15:11 Resp 13 08/20/25 15:11 BP 152/80 H 08/20/25 15:11 Pulse Ox 99 08/20/25 15:11 Oxygen Delivery Method Room Air 08/20/25 15:11 BMI result Body Mass Index 33.8 BMI Assessment/Plan discussion: High BMI High, discussed plan: lifestyle Tobacco/Smoking Status: Tobacco use Status Tobacco use date assessed 08/20/25 08/20/25 15:13 Patient Tobacco Use Status Never used Tobacco 08/20/25 15:13 e-Cigarette/Vaping Use Never Used 08/20/25 15:13 PHQ-9: PHQ-9 Score PHQ-9: Total score 1 08/20/25 15:13 Depression Screening Interpretation: Negative Thrive Assessment: Date of Thrive Assessment Date Thrive assessed 08/20/25 08/20/25 15:13 Currently or been in a relationship where the following occur: No concerns reported Results Reviewed Results Reviewed: 05/2025 Laboratory Result Units Range Interpretation Provider Comments Anti-MuSK Antibody Method Anti-MuSK Ab Technical Result Anti-MuSK Antibody Interpretation Anti-MuSK Antibody Comments Anti-MuSK Antibody References Acetylcholine Receptor Blocking Ab <15 (<15) Acetylcholine Receptor Binding Ab <0.30 nmol/L Acetylcholine Recept Modulating Ab 18 Coding Level of Care Code Est Pt Level 2 (58706) Est Pt Prev Care 18-39y(85066) Diagnoses Encounter for general adult medical examination without abnormal findings Z00.00 ANDREIA (generalized anxiety disorder) F41.1 Hypertension, unspecified type I10 Hypertension type: unspecified Systolic murmur R01.1 Ptosis of left eyelid H02.402 Laterality: left Elevated LFTs R79.89 BMI 30.0-30.9,adult Z68.30 History of Papanicolaou smear of cervix Z92.89 Chronic nonintractable headache, unspecified headache type R51.9; G89.29 Headache type: unspecified Headache chronicity pattern: chronic headache Intractability: not intractable Dermoid cyst of skin of back D23.5 Additional Codes ANDREIA-7 Assessment Billing - ANDREIA-7 Assessment Tool: ANDREIA-7 Assessment [id number] ([id number]) PHQ-9 - 98663 - PHQ-9 Billing: Yes ([id number]) Assessment & Plan Assessment & Plan (1) Encounter for general adult medical examination without abnormal findings: Onset Date: ~08/20/25 Code(s): Z00.00 - Encounter for general adult medical examination without abnormal findings Category: Medical (2) ANDREIA (generalized anxiety disorder): Code(s): F41.1 - Generalized anxiety disorder Category: Medical (3) HTN (hypertension): Comment: Blood pressure goal less than 140/90 Code(s): I10 - Essential (primary) hypertension Category: Medical Qualifiers: Hypertension type: unspecified Qualified Code(s): I10 - Essential (primary) hypertension (4) Systolic murmur: Comment: Echo 02/2024 Normal left ventricular size, thickness, and systolic function. The visually estimated ejection fraction is between 60-65%. Diastolic function is normal for age. Peak GLS is -19.6%, within normal limits. Trace mitral and pulmonic valve regurgitation Recommendation contrast study to evaluate intracardiac shunting She does not wish to do a bubble study at this time; I do not think there is any reason to do this at this time. She is already taking a BB and ASA QD If she develops any sx or when she is not could entertain. Code(s): R01.1 - Cardiac murmur, unspecified Category: Medical (5) Ptosis: Comment: Affecting the left upper eyelid. Concerning presentation for myasthenia gravis. We will try to check some labs today and bring back next week to discuss further. May benefit from a neurology referral. advised for her to schedule an eye doctor appointment for an eye exam. MG labs to be done - 05/2025 WNL refer to [facility] Code(s): H02.409 - Unspecified ptosis of unspecified eyelid Category: Medical Qualifiers: Laterality: left Qualified Code(s): H02.402 - Unspecified ptosis of left eyelid (6) Elevated LFTs: Onset Date: ~06/11/25 Code(s): R79.89 - Other specified abnormal findings of blood chemistry Category: Medical (7) BMI 30.0-30.9,adult: Code(s): Z68.30 - Body mass index [BMI] 30.0-30.9, adult Category: Medical (8) History of Papanicolaou smear of cervix: Code(s): Z92.89 - Personal history of other medical treatment Category: Medical (9) Headache: Code(s): R51.9 - Headache, unspecified Category: Medical Qualifiers: Headache type: unspecified Headache chronicity pattern: chronic headache Intractability: not intractable Qualified Code(s): R51.9 - Headache, unspecified; G89.29 - Other chronic pain (10) Dermoid cyst of skin of back: Code(s): D23.5 - Other benign neoplasm of skin of trunk Category: Medical Plan . Orders: Orders Comprehensive Met. Panel Today I10 - Essential (primary) hypertension, R79.89 - Other specified abnormal findings of blood chemistry Referrals Neurology Referral H02.402 - Unspecified ptosis of left eyelid, R51.9 - Headache, unspecified General Surgery Referral D23.5 - Other benign neoplasm of skin of trunk Medications: New lisinopril 5 mg PO DAILY 90 tabs 2RF Refilled labetalol 100 mg PO BID 180 tabs 2RF citalopram 20 mg PO DAILY 90 tabs 1RF Patient Instructions: Health screenings for women You should visit your health care provider from time to time, even if you are healthy. The purpose of these visits is to: Screen for medical issues Assess your risk for future medical problems Encourage a healthy lifestyle Update vaccinations and other preventive care services Help you get to know your provider in case of an illness Information Even if you feel fine, you should still see your provider for regular checkups. These visits can help you avoid problems in the future. For example, the only way to find out if you have high blood pressure is to have it checked regularly. High blood sugar and high cholesterol levels also may not have any symptoms in the early stages. A simple blood test can check for these conditions. There are specific times when you should see your provider or receive specific health screenings. The [place] Preventive Services Task Force publishes a list of recommended screenings. Below are screening guidelines for women ages 18 to 39. BLOOD PRESSURE SCREENING Your blood pressure should be checked at least once every 3 to 5 years if: Your blood pressure is in the normal range (top number less than 120 mm Hg and bottom number less than 80 mm Hg) You don't have risk factors for high blood pressure Ask your provider if you need your blood pressure checked more often if: The top number is 120 to 129 mm Hg or the bottom number is 70 to 79 mm Hg You have diabetes, heart disease, kidney problems, are overweight, or have certain other health conditions You have a first-degree relative with high blood pressure You are Black You had high blood pressure during a If the top number is 130 mm Hg or greater or the bottom number is 80 mm Hg or greater, this is considered stage 1 hypertension. Schedule an appointment with your provider to learn how you can reduce your blood pressure. Watch for blood pressure screenings in your area. Ask your provider if you can stop in to have your blood pressure checked. BREAST CANCER SCREENING Experts do not agree about the benefits of breast self-exams in finding breast cancer or saving lives. Talk to your provider about what is best for you. A screening mammogram is not recommended for most women under age 40. Your provider may discuss and recommend mammograms, MRI scans, or ultrasounds if you have an increased risk for breast cancer, such as: A mother or sister who had breast cancer at a young age (most often starting screening earlier than the age the close relative was diagnosed) You carry a high-risk genetic marker CERVICAL CANCER SCREENING Cervical cancer screening should start at age 21 years unless your provider advises otherwise. After the first test: Women ages 21 through 29 should have a Pap test every 3 years. Exoprts do not agree on whether HPV testing is recommended for this age group. Women ages 30 through 65 should be screened with either a Pap test every 3 years or the HPV test every 5 years or both tests every 5 years (called cotesting ). Women who have been treated for precancer (cervical dysplasia) should continue to have Pap tests for 20 years after treatment or until age 65, whichever is longer. If you have had your uterus and cervix removed (total hysterectomy), and you have not been diagnosed with cervical cancer or precancer (high grade cervical neoplasia), you do not need cervical cancer screening. CHOLESTEROL SCREENING Cholesterol screening should begin at: Age 45 for women with no known risk factors for coronary heart disease Age 20 for women with known risk factors for coronary heart disease Repeat cholesterol screening should take place: Every 5 years for women with normal cholesterol levels More often if changes occur in lifestyle (including weight gain and diet) More often if you have diabetes, heart disease, kidney problems, or certain other conditions DIABETES SCREENING You should be screened for diabetes starting at age 35 and then repeated every 3 years if you have no risk factors for diabetes. Screening may need to start earlier and be repeated more often if you have other risk factors for diabetes, such as: You have a first degree relative with diabetes. You are overweight or have obesity. You have high blood pressure, prediabetes, or a history of heart disease. Screening for diabetes should be done if you are planning to become and you are overweight and have other risk factors such as high blood pressure. DENTAL EXAM Go to the dentist once or twice every year for an exam and cleaning. Your dentist will evaluate if you need more frequent visits. EYE EXAM Have an eye exam every 5 to 10 years before age 40. If you have vision problems, have an eye exam every 2 years or more often if recommended by your provider. You should have an eye exam that includes an examination of your retina (back of your eye) at least every year if you have diabetes. IMMUNIZATIONS Commonly needed vaccines include: Flu shot: get one every year. COVID-19 vaccine: ask your provider what is best for you. Tetanus-diphtheria and acellular pertussis (Tdap) vaccine: have one at or after age 19 as one of your tetanus-diphtheria vaccines if you did not receive it as an adolescent. Tetanus-diphtheria: have a booster (or Tdap) every 10 years. Varicella vaccine: receive 2 doses if you never had chickenpox or the varicella vaccine. Hepatitis B vaccine: receive 2, 3, or 4 doses, depending on your exact circumstances. Measles, mumps, and rubella (MMR) vaccine: receive 1 to 2 doses if you are not already immune to MMR. Your provider can tell you if you are immune. Ask your provider about the human papillomavirus (HPV) vaccine if: You have not received the HPV vaccine in the past You have not completed the full vaccine series (you should catch up on this shot) Ask your provider if you should receive other immunizations if you have certain health problems that increase your risk for some diseases such as pneumonia. INFECTIOUS DISEASE SCREENING Women who are sexually active should be screened for chlamydia and gonorrhea up until age 25. Women 25 years and older should be screened for chlamydia and gonorrhea if at high risk. Screening for hepatitis C: All adults ages 18 to 79 should get a one-time test for hepatitis C. people should be screened at every . Screening for human immunodeficiency virus (HIV): All people ages 15 to 65 should get a one-time test for HIV. Depending on your lifestyle and medical history, you may also need to be screened for infections such as syphilis and HIV, as well as other infections. PHYSICAL EXAM All adults should visit their provider from time to time, even if they are healthy. The purpose of these visits is to: Screen for disease Assess your risk of future medical problems Encourage a healthy lifestyle Update your vaccinations and other preventive care services Maintain a relationship with a provider in case of an illness Your height, weight, and BMI should be checked at every exam. During your exam, your provider may ask you about: Depression and anxiety Diet and exercise Alcohol and tobacco use Safety issues, such as using seat belts, smoke detectors, and intimate partner violence Your medicines and risk for interactions SKIN SELF-EXAM Your provider may check your skin for signs of skin cancer, especially if you're at high risk, such as if you: Have had skin cancer before Have close relatives with skin cancer Have a weakened immune system OTHER SCREENING Talk with your provider about colon cancer screening if you have a strong family history of colon cancer or polyps, or if you have had inflammatory bowel disease or polyps yourself. Routine bone density screening of women under 40 is not recommended.
[2025-08-20 15:11] VITALS: BP 152/80; PULSE 76; RESP 13; TEMP 36.2; O2SAT 99; BMI 33.8
== END 2025-08-20 15:39 | disposition home or self-care (01) ==
LOC: HO.HMCFM 15:07
PROVIDERS: PCP Nurse Practitioner Family; Visit Provider Nurse Practitioner Family
DX: Z00.00 Encounter for general adult medical examination without abnormal findings (principal); F41.1 Generalized anxiety disorder; I10 Essential (primary) hypertension; R01.1 Cardiac murmur, unspecified; H02.402 Unspecified ptosis of left eyelid; R79.89 Other specified abnormal findings of blood chemistry; Z68.30 Body mass index [BMI] 30.0-30.9, adult; Z92.89 Personal history of other medical treatment; R51.9 Headache, unspecified; G89.29 Other chronic pain; D23.5 Other benign neoplasm of skin of trunk

== ENCOUNTER → 2025-08-20 15:06 | Outpatient (BNVA) | payer BC, SELFPAY | PROVIDERS: PCP Nurse Practitioner Family; Visit Provider Nurse Practitioner Family | DX: Z00.00 Encounter for general adult medical examination without abnormal findings (principal); I10 Essential (primary) hypertension; F41.1 Generalized anxiety disorder; R51.9 Headache, unspecified; R01.1 Cardiac murmur, unspecified; H02.402 Unspecified ptosis of left eyelid; R79.89 Other specified abnormal findings of blood chemistry; G89.29 Other chronic pain; D23.5 Other benign neoplasm of skin of trunk; Z68.30 Body mass index [BMI] 30.0-30.9, adult; Z92.89 Personal history of other medical treatment | CPT/HCPCS: 96127 ==

== ENCOUNTER 2025-09-17 13:48 | Outpatient (AMB) | payer BC, SELFPAY ==
--- NOTE | 2025-09-17 13:51 | MHC.PC.OV ---
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 Allergies No Known Allergies Allergy (Verified 09/17/25 13:56) Medication List - Last Reconciled 09/17/25 by Maureen Bobby, [facility]- citalopram 20 mg PO DAILY labetalol 100 mg PO BID lisinopril 5 mg PO DAILY norethindrone (contraceptive) 0.35 mg PO DAILY Tobacco use date assessed: 09/17/25 Dental Screening Dental Screen Date: 08/20/25 HPI HPI Comments History of Present Illness Details History of Present Illness 35-year-old female HTN, ANDREIA, ptosis Social: 1 and 2 year at home Surgery: none Fhx: No changes Health maintenance: Tdap 2023 Pap UTD Flu declined 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 Essential Hypertension: - Uncontrolled blood pressure history. - Labetalol 100 mg BID and Lisinopril 5 mg QD (added 4 weeks ago). - Current BP improved to ~130/90. - Stress noted as potential exacerbator. - Dry throat/cough at night; no significant swelling or symptoms. Cyst: - Surgical consultation planned next month. Ptosis/neck pain: [facility] consult 12/2025 [facility] Medical History ANDREIA (generalized anxiety disorder) Surgical History No pertinent past surgical history Social History Household Members: Significant Other and Children Housing: House Alcohol intake: former Patient Tobacco Use Status: Never used Tobacco e-Cigarette/Vaping Use: Never Used Second Hand Smoke Exposure: No service: No Current occupational status: employed Current occupation: [employer] office Cognitive needs: No Hearing needs: No Vision needs: Yes Questionnaire Thrive Questionnaire Date Thrive assessed: 06/28/25 I am a: Patient What is your living situation today?: I have a steady place to live Within the past 12 months, did the food you bought not last and you didn't have the money to get more?: Never true Within the past 12 months, did you worry whether your food would run out before you got money to buy more?: Never true Do you have trouble paying for medicines?: No Do you have trouble getting transportation to medical appointments?: No Do you have trouble paying your heating and electricity bill?: No Do you have trouble taking care of your child, family member or friend?: No Do you have trouble with day-to-day activities such as bathing, preparing meals, shopping, managing finances, etc.?: No Are you currently unemployed and looking for a job?: No Are you interested in more education?: No Please select the resources that you would like help with: None Currently or been in a relationship where the following occur: No concerns reported THRIVE Score: 0 AUDIT C Alcohol Use Questionnaire (AUDIT-C) 1. How often do you have a drink containing alcohol?: 2-4 times a month 2. How many drinks containing alcohol do you have on a typical day when you are drinking?: 1 or 2 3. How often do you have six or more drinks on one occasion?: Never Total Score: 2 ANDREIA-7 AMB Questionnaire ANDREIA-7 Date ANDREIA - 7 assessed: 08/20/25 Source: Developed by Drs. Curt Anand, Lacie Mondragon, Devin Quintero and colleagues, with an educational john from [employer]. Review of Systems Narrative Review of Systems - Cardiovascular: Reports hypertension; denies swelling of face or lips. - Respiratory: Denies significant cough or respiratory distress; minor dry throat at night. - Neurological: Reports consistent headaches associated with high blood pressure. - Gastrointestinal: Denies any significant symptoms. - Musculoskeletal: Denies muscle soreness or joint issues. - Constitutional: Reports stress; general health otherwise good. - Psychosocial: Reports stress-related factors influencing condition stability. Physical exam (Primary Care) Vital Signs: Last Vital Signs Temp 98.7 F 09/17/25 13:52 Pulse 74 09/17/25 13:52 Resp 14 09/17/25 13:52 BP 136/96 H 09/17/25 13:52 Pulse Ox 98 09/17/25 13:52 Oxygen Delivery Method Room Air 09/17/25 13:52 BMI result Body Mass Index 34.7 Tobacco/Smoking Status: Tobacco use Status Tobacco use date assessed 08/20/25 08/23/25 11:57 Patient Tobacco Use Status Never used Tobacco 08/23/25 11:57 e-Cigarette/Vaping Use Never Used 08/23/25 11:57 Thrive Assessment: Date of Thrive Assessment Date Thrive assessed 06/28/25 09/17/25 13:49 Currently or been in a relationship where the following occur: No concerns reported Narrative Physical Exam General: Well developed, well nourished, in no acute distress. Appears stated age. Head: Normocephalic, atraumatic. Eyes: Pupils are equal, round and reactive to light and accommodation. Conjunctivae are clear. Vision grossly normal. Lungs: Clear to auscultation bilaterally. No rales, rhonchi or wheeze noted. Good air flow in all pagan. Heart: Regular rate and rhythm. No murmurs, click, rubs or gallops are noted. Pulses: Peripheral pulses are equal and palpable bilaterally. Extremities: No clubbing, cyanosis nor edema is noted. Psych: Mood and affect appropriate. 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 Concerning presentation for myasthenia gravis. We will try to check some labs today and bring back next week to discuss further. May benefit from a neurology referral. advised for her to schedule an eye doctor appointment for an eye exam. MG labs to be done - 05/2025 WNL refer to [facility] Code(s): H02.409 - Unspecified ptosis of unspecified eyelid Category: Medical Qualifiers: Laterality: left Qualified Code(s): H02.402 - Unspecified ptosis of left eyelid (3) Dermoid cyst of skin of back: Code(s): D23.5 - Other benign neoplasm of skin of trunk Category: Medical Plan Discussion Notes During our visit, we discussed her hypertension management, considering her symptoms have improved but are not yet at target. I suggested increasing Lisinopril to 10 mg daily after confirming normal lab results, which will evaluate kidney function and potassium levels due to the nature of the medication. The importance of achieving control of blood pressure was emphasized, acknowledging her stressors' influence. We also addressed her upcoming surgical consultation for an ovarian cyst in the following month and a neurology appointment scheduled for December. We will follow up in four to six weeks or sooner if her symptoms or lab results necessitate it. We discussed monitoring stress levels and ensuring adequate medication supply. Patient was given time to ask questions. All questions were answered to their satisfaction. Assessment and Plan 1. Essential Hypertension - Improved with medication. - Increase Lisinopril to 10 mg if labs normal; get done today. Ok to take 10mg at HS or 5mg BID. - Monitor stress levels. - If cough worsens, can consider change in med prn; tolerable @ this time - Follow-up in 4-6 weeks. 2. Cyst - Consultation next month. - Monitor for symptoms. 3. Ptosis/neck pain FU with [facility] as scheduled. Patient Instructions - Continue taking Labetalol and Lisinopril as directed.. - Monitor blood pressure regularly. Labs today. - Look out for any side effects and inform me if any occur. - Keep the follow-up appointment for 4-6 weeks or sooner if needed. - Attend the surgical consultation next month for the cyst. - Manage stress by taking breaks, confiding in friends or family, or practicing relaxation techniques. - RTO 4-6 weeks to fu on BP, sooner As needed. Consent Patient was informed and verbally consented to the use of an ambient scribe for clinic note documentation during this visit.
[2025-09-17 13:52] VITALS: BP 136/96; PULSE 74; RESP 14; TEMP 37.1; O2SAT 98; BMI 34.7
[2025-09-17 13:55] VITALS: BP 130/90
[2025-09-17 14:10] VITALS: BP 128/88
== END 2025-09-17 14:10 | disposition home or self-care (01) ==
LOC: HO.HMCFM 13:49
PROVIDERS: PCP Nurse Practitioner Family; Visit Provider Nurse Practitioner Family
DX: I10 Essential (primary) hypertension (principal); H02.402 Unspecified ptosis of left eyelid; D23.5 Other benign neoplasm of skin of trunk

== ENCOUNTER 2025-09-17 13:48 | Outpatient (REF) | payer BC, SELFPAY ==
[2025-09-17 18:49] LABS: Alanine Aminotransferase 51 U/L (0-31); Albumin Level 4.6 g/dL (3.5-5.0); Alkaline Phosphatase 73 U/L (39-117); Anion Gap 12 (12-20); Aspartate Amino Transferase 34 U/L (5-31); Blood Urea Nitrogen 18 mg/dL (9-16); Calcium 9.4 mg/dL (8.4-10.2); Carbon Dioxide 25 mmol/L (22-29); Chloride 105 mmol/L (96-108); Estimated Glomerular Filt Rate > 60; Potassium 4.0 mmol/L (3.3-5.1); Sodium 138 mmol/L (135-145); Total Protein 7.1 g/dL (6.5-8.0)
== END 2025-09-17 13:49 | disposition home or self-care (01) ==
LOC: HO.WFDLDS 13:48
PROVIDERS: PCP Nurse Practitioner Family; Visit Provider Nurse Practitioner Family
DX: I10 Essential (primary) hypertension (principal); H02.402 Unspecified ptosis of left eyelid; D23.5 Other benign neoplasm of skin of trunk; R79.89 Other specified abnormal findings of blood chemistry
CPT/HCPCS: 36415; 80053

== ENCOUNTER 2025-09-29 13:57 | Outpatient (AMB) | payer BC, SELFPAY ==
--- NOTE | 2025-09-29 13:58 | MHC.OFFVIS ---
Vital Signs 09/29/25 13:59 Height 4 ft 11 in Weight 170 lb BMI 34.3 Intake Visit Reasons: benign neoplasm of skin of trunk Intake Note: This patient presents for an assessment for benign neoplasm of skin of trunk. Pt c/o; skin lesion of back, no pain/discomfort at this time. 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 She says she has had this for over 6 years. She says that this has been increasing in size. She therefore wants to have this removed. She denies drainage. 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: [employer] office Cognitive needs: No Hearing needs: No Vision needs: Yes Review of Systems Const Denies chills and Denies fever(s) Card Denies chest pain, Denies dyspnea and Denies dyspnea on exertion Resp Denies cough, Denies dyspnea and Denies dyspnea on exertion GI Denies hematochezia and Denies change in bowel habits Denies hematuria Musc Denies back pain and Denies limited range of motion Neuro Denies focal weakness and Denies convulsions Psych Denies depression and Denies mood swings Physical Exam Vital Signs: BMI result Body Mass Index 34.3 Const General: comfortable and no acute distress Orientation/consciousness: patient oriented x3 Neck Neck: Yes no lymphadenopathy Resp Auscultation: clear to auscultation bilaterally Cardio Rhythm: regular rhythm GI Palpation (GI): Soft to palpation, nontender and no guarding Back/Spine/Pelvis Other: Cystic induration, about 2.3 cm on the upper back Neuro General: patient oriented x3 Assessment & Plan Assessment & Plan (1) Epidermal inclusion cyst: Code(s): L72.0 - Epidermal cyst Category: Medical Plan: She has this cyst on the back and she wants this removed. I explained the technique of excision under local anesthesia. I reviewed the risks including but not limited to bleeding and infections, as well as the benefits and alternatives. She understands and wants to proceed This will be done in the office on her next visit. Coding Level of Care Code New Pt Level 3 (90977) Diagnoses Epidermal inclusion cyst L72.0
[2025-09-29 13:59] VITALS: BMI 34.3
== END 2025-09-29 14:17 | disposition home or self-care (01) ==
LOC: HO.HGS 13:57
PROVIDERS: PCP Nurse Practitioner Family; Visit Provider Surgery
DX: L72.0 Epidermal cyst (principal)
CPT/HCPCS: 99203